=== PATIENT | female | born 2000 | race Caucasian/White ===

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

== ENCOUNTER 2024-09-21 08:58 | Day surgery (SDC) | payer BC ==
[2024-09-21] MEDS: Lactated Ringers 1,000 ML IV SCH (09:22)
[2024-09-21] MEDS ORDERED: Propofol 200 MG/20 ML SDV ONE (09:53)
[2024-09-21] MEDS ORDERED: Ondansetron 4 MG/2 ML SDV ONE (09:53)
[2024-09-21] MEDS ORDERED: fentaNYL 50 MCG/ML SDV ONE (09:53)
[2024-09-21 11:00] VITALS: BP 134/72; PULSE 56
== END 2024-09-21 11:00 | disposition home or self-care (01) ==
LOC: CC.SDS 08:58
PROVIDERS: ATTEND Family Medicine
DX: K29.70 Gastritis, unspecified, without bleeding (principal); Z91.040 Latex allergy status
CPT/HCPCS: 36415; 43239; 84703; 87081; J2003; J2405; J2704; J3010; J7120